=== PATIENT | female | born 1940 | race Caucasian/White ===

== ENCOUNTER 2017-11-15 10:05 | Emergency (ER) | payer MEDICARE ==
[2016-08-19 15:37] VITALS: Wt 139.0 kg
[~2017-11-15 10:05] MED LIST: ACE500 PO; ACET-1966 PO; ACET-2031 PO; ACTICIN; ALBUTEROL INHALER; ALP5 PO; ALPR-451 PO; AML5; AMLO-1 PO; AMLO-104 PO; AMO500 PO; ASCO-191 PO; ASPI-715 PO; ATOR40TA24 PO; BIOT10004 PO; CAND1TAB18 PO; CARB15DR74 OP; CEL100 PO; CEPH-13 PO; CHOL100052 PO; CHOL200038 PO; CIPR-326 PO; CLA500 PO; CRAN500T2 PO; CYCL1DRO6 OP; DOCU-416 PO; DULO60CA56 PO; FLAX100030 PO; FLUT16SP19 NS; FUR20 PO; GABA-1 PO; GENT5DRO OP; GUALA600 PO; GUIDMUD PO; HYDR-3087 PO; HYDR-385 PO; HYDR-4308 PO; HYDR473S4 PO; IBU600 PO; IRB150 PO; IRO150 PO; ISOS30TA51 PO; KETO5DRO50 OP; LEV125 PO; LEVO150T72 PO; LEVO250T37 PO; LID5T TOP; LISI-368 PO; LISI2.5T60 PO; LOR5 PO; LOS50 PO; LOSA50TA72 PO; METF-1 PO; MOM PO; NIT4 SL; NITR0.3T6 SL; NYST15PO4 TOP; OMEP-218 PO; OMEP40CA48 PO; OMEP40CA79 PO; OXAP-1 PO; OXYC-944 PO; OXYM3SPR NS; Oxygen INH; PAN40 PO; PANT40TA65 PO; PER PO; POLY17PO25 PO; POLY17PO33 PO; PREDNISONE; PROM5SYR PO; QUET50TA21 PO; SEN PO; SIMV-44 PO; SPIR1TAB26 PO; SPIR1TAB28 PO; SULF-198 PO; THIA50TA10 PO; TOBROD OP; TRA50 PO; VITA1CAP46 PO; WAR75 PO; WARF-1 PO; WARF2.5T11 PO; WARF2.5T62 PO; WARF4TAB47 PO; [UNRECOGNIZED DRUG - CODE] PO; [UNRECOGNIZED DRUG - OTHER]; [UNRECOGNIZED DRUG - REMARK]; [UNRECOGNIZED DRUG - REMARK]
--- NOTE | 2017-11-15 10:26 | ER Report ---
History and Physical Time Seen By MD: 10:25 HPI/ROS CHIEF COMPLAINT: trouble breathing HISTORY OF PRESENT ILLNESS: This is a 77 year old female. She has not been feeling well since about July. Slow worsening. Trouble mainly with breathing. Feels short of breath even with her oxygen. She has some upper congestion in the sinuses and throat. Has been having subjective fevers. Feels very weak. Friends telling her she looks very pale. Went to the doctor last week. They thought she had fluid on the lungs. Was given a prescription for an antibiotic, unsure which. Did not help. Feeling worse this week and decided to come to the ER. No problems with urination including no dysuria, hematuria. No problems with bowels including no diarrhea, constipation, blood in stool or melena. No abdominal pain. Chest feels heavy. No nausea or vomiting. Last night says she felt like she might . No swelling or edema in the legs. REVIEW OF SYSTEMS: Constitutional: No fever or chills. Eyes: No vision changes. ENT: As above. Cardiovascular: As above. Respiratory: As above. Gastrointestinal: As above. Genitourinary: As above. Musculoskeletal: No muscle or joint pains. Skin: No rashes. Neurological: Feels weak overall. Allergies: Coded Allergies: sulfamethoxazole (Verified Allergy, Intermediate, MENTAL STATUS CHANGES, ) trimethoprim (Verified Allergy, Intermediate, MENTAL STATUS CHANGES, ) promethazine HCl (Verified Allergy, Unknown, 11/15/17) Beta-Blockers (Beta-Adrenergic Bloc (Verified Adverse Reaction, Mild, COUGHING, 11/15/17) Home Meds Active Scripts Methylprednisolone (METHYLPREDNISOLONE) 4 Mg Tab.ds.pk, 4 MG PO DIRECTED, #1 PACK 0 Refills Prov:MARIKA MOSCOSO MD 11/15/17 Reported Medications Alprazolam (XANAX) 0.5 Mg Tablet, 2 TAB PO PRN, TAB 11/15/17 Aspirin (ASPIRIN) 325 Mg Tablet, 325 MG PO QDAY, TAB 11/15/17 Cephalexin Monohydrate (CEPHALEXIN) 500 Mg Cap, 250 MG PO QDAY, CAP 11/15/17 Quetiapine Fumarate (SEROQUEL) 50 Mg Tablet, 50 MG PO HS 09/27/16 Spironolact/Hydrochlorothiazid (SPIRONOLACTONE-HCTZ 25-25 TAB) 1 Each Tablet, 1 EACH PO DAILY, TAB 09/27/16 Metformin Hcl (GLUCOPHAGE) 500 Mg Tablet, 1 TAB PO QDAY, TAB 09/27/16 Duloxetine Hcl (CYMBALTA) 60 Mg Capsule.dr, 60 MG PO QDAY, #5 CAP 08/18/16 Cyclosporine (RESTASIS) 1 Each Droperette, 1 EACH OP BID 08/18/16 Losartan Potassium (LOSARTAN POTASSIUM) 50 Mg Tablet, 50 MG PO QDAY 08/18/16 Atorvastatin Calcium (LIPITOR) 40 Mg Tablet, 1 TAB PO QHS, TAB 08/18/16 Hydrocodone Bit/Acetaminophen (NORCO 7.5-325 TABLET) 1 Each Tablet, 1 EACH PO Q4H Y for PAIN 08/18/16 Amlodipine Besylate (NORVASC) 10 Mg Tablet, 1 TAB PO QDAY, TAB 08/18/16 Warfarin Sodium (WARFARIN SODIUM) 2.5 Mg Tablet, 2.5 MG PO Tu/Thurs 08/18/16 [Oxygen] No Conflict Check, 3-4 L INH CONTINUOUS 07/12/13 Levothyroxine Sodium (SYNTHROID) 150 Mcg Tablet, 150 MCG PO QDAY, 0 Refills 06/26/13 Docusate Sodium (COLACE) 100 Mg Capsule, 100 MG PO BID, 0 Refills 06/26/13 Warfarin Sodium (COUMADIN) 5 Mg Tablet, 5 MG PO Sun/Wed/Fri/Sat/Sun , #30 0 Refills 06/26/13 Discontinued Reported Medications Nystatin 100,000 Unit/Gm Top Powder (NYSTATIN 100,000 UNIT/GM TOP POWDER) 15 Gm Powder, 1 KIZZY TOP PRN, TUBE 08/18/16 Polyethylene Glycol 3350 (MIRALAX) 17 Gm Powd.pack, 17 GM PO QDAY, 0 Refills 06/26/13 Aspirin (Aspirin) 81 Mg Tablet.dr, 81 MG PO DAILY, 0 Refills 11/18/12 Isosorbide Mononitrate (Imdur) 30 Mg Tab.sr.24h, 30 MG PO QDAY, 0 Refills 11/18/12 Discontinued Scripts Pantoprazole Sodium (PANTOPRAZOLE SODIUM) 40 Mg Tablet.dr, 1 TAB PO QAM, #60 TAB 6 Refills Take 1 tablet every morning, 1/2 hour before eating. Prov:MARELY TERAN MD 10/04/16 Past Medical/Surgical History Hypertension, COPD, history of pulmonary embolism, type 2 diabetes, hypothyroidism, arthritis, pacemaker, multiple orthopedic surgeries, tonsillectomy Reviewed Nurses Notes: Yes Hx Smoking: Yes (SOCIAL SMOKER ONLY) Smoking Status: Former Smoker Exposure to Second Hand Smoke?: No Hx Substance Use Disorder: No Hx Alcohol Use: Yes Constitutional Vital Sign - Last 24 Hours 11/15/17 11/15/17 11/15/17 11/15/17 10:20 10:24 10:30 10:35 Temp 97.8 Pulse 100 100 Resp 18 B/P (MAP) 141/59 (86) 141/59 102/88 (93) Pulse Ox 95 97 O2 Delivery Nasal Cannula 11/15/17 11/15/17 11/15/17 11/15/17 10:50 11:02 11:20 11:30 Pulse 98 160 B/P (MAP) 120/95 (103) Pulse Ox 94 81 O2 Flow Rate 3.0 11/15/17 11/15/17 11/15/17 11/15/17 11:35 11:40 11:55 12:25 Pulse 96 97 95 93 Pulse Ox 94 98 97 99 11/15/17 11/15/17 12:40 12:55 Pulse 94 95 Pulse Ox 96 98 Physical Exam General Appearance: The patient is alert. No acute distress. Eyes: Pupils are equal, round, reactive to light. No injection or icterus, but she does have pallor. Extraocular movements are intact. ENT: Mucous membranes are moist. Normal oral mucosa. Posterior oropharynx is normal, with erythema but she does have postnasal drainage. Some erythema in the nasal mucosa with mucus present. Normal tympanic membranes and canals. Neck: Supple and non tender. No lymphadenopathy. Respiratory: Lungs are diminished but otherwise clear. There are no retractions or accessory muscle use. She is wearing oxygen on her concentrator, pulse dose Cardiovascular: Regular rate and rhythm. No murmurs, gallops or rubs. Normal capillary refill. Trace edema. Gastrointestinal: Abdomen is soft and non tender. Nondistended. Normal active bowel sounds. No costovertebral angle tenderness with percussion. Neurological: Alert and oriented x3. No focal neurologic deficits Skin: Warm and dry. Pallor. Musculoskeletal: Extremities are nontender. Full range of motion. No tenderness in palpation of the back and spine. DIFFERENTIAL DIAGNOSIS: After history and physical exam, differential diagnosis was considered for shortness of breath including but not limited to pulmonary infectious process, COPD, pulmonary embolus and congestive heart failure. Pallor could suggest a problem with anemia. Upper a story symptoms and congestion concerning for possible sinusitis Medical Decision Making Data Points Result Diagram: 11/15/17 1045 11/15/17 1045 Laboratory Hematology Test 11/15/17 00:00 11/15/17 10:45 11/15/17 10:55 Urine Color Yellow Urine Clarity Clear Urine pH 5.0 pH (4.8-9.5) Urine Specific [place] 1.018 Urine Protein Negative mg/dL (NEGATIVE) Urine Glucose (UA) Negative mg/dL (NEGATIVE) Urine Ketones Negative mg/dL (NEGATIVE) Urine Blood Negative (NEGATIVE) Urine Nitrite Negative (NEGATIVE) Urine Bilirubin Negative (NEGATIVE) Urine Urobilinogen Negative mg/dL (0.2-1.9) Urine Leukocyte Esterase Negative (NEGATIVE) Urine RBC <1 /HPF (0-2/HPF) Urine WBC 1 /HPF (0-5/HPF) Urine Squamous Epithelial Cells Many /LPF (</=FEW) Urine Bacteria Negative /HPF (NONE-FEW) Urine Mucus None /HPF (NONE-FEW) Red Blood Count 3.16 M/uL (4.17-5.56) Mean Corpuscular Volume 96.5 fL (80.0-96.0) Mean Corpuscular Hemoglobin 32.2 pg (26.0-33.0) Mean Corpuscular Hemoglobin Concent 33.4 g/dL (32.0-36.0) Red Cell Distribution Width 13.8 % (11.5-14.5) Mean Platelet Volume 8.8 fL (7.2-11.1) Neutrophils (%) (Auto) 87.2 % (39.4-72.5) Lymphocytes (%) (Auto) 8.3 % (17.6-49.6) Monocytes (%) (Auto) 3.5 % (4.1-12.4) Eosinophils (%) (Auto) 0.2 % (0.4-6.7) Basophils (%) (Auto) 0.8 % (0.3-1.4) Nucleated RBC Relative Count (auto) 0.0 /100WBC Neutrophils # (Auto) 13.2 K/uL (2.0-7.4) Lymphocytes # (Auto) 1.3 K/uL (1.3-3.6) Monocytes # (Auto) 0.5 K/uL (0.3-1.0) Eosinophils # (Auto) 0.0 K/uL (0.0-0.5) Basophils # (Auto) 0.1 K/uL (0.0-0.1) Nucleated RBC Absolute Count (auto) 0.00 K/uL D-Dimer Quantitative (PE/DVT) 2.49 ug/ml (0-0.50) Sodium Level 134 mmol/L (137-145) Potassium Level 4.2 mmol/L (3.5-5.0) Chloride Level 97 mmol/L (98-107) Carbon Dioxide Level 26 mmol/L (22-31) Blood Urea Nitrogen 75 mg/dl (7-18) Creatinine 1.00 mg/dl (0.52-1.04) Glomerular Filtration Rate Calc 53.6 Random Glucose 137 mg/dl (75-110) Lactate 2.0 mmol/L (0.7-2.1) Calcium Level 9.8 mg/dl (8.4-10.2) Total Bilirubin 0.5 mg/dl (0.2-1.3) Aspartate Amino Transf (AST/SGOT) 18 U/L (0-35) Alanine Aminotransferase (ALT/SGPT) 29 U/L (0-56) Alkaline Phosphatase 73 U/L (0-126) Troponin I < 0.012 ng/ml B-Type Natriuretic Peptide 6 pg/ml (0-100) Total Protein 6.3 gm/dl (6.3-8.2) Albumin 3.6 g/dl (3.5-5.0) Influenza Virus Type A (PCR) Negative (NEGATIVE) Influenza Virus Type B (PCR) Negative (NEGATIVE) Chemistry Test 11/15/17 00:00 11/15/17 10:45 11/15/17 10:55 Urine Color Yellow Urine Clarity Clear Urine pH 5.0 pH (4.8-9.5) Urine Specific [place] 1.018 Urine Protein Negative mg/dL (NEGATIVE) Urine Glucose (UA) Negative mg/dL (NEGATIVE) Urine Ketones Negative mg/dL (NEGATIVE) Urine Blood Negative (NEGATIVE) Urine Nitrite Negative (NEGATIVE) Urine Bilirubin Negative (NEGATIVE) Urine Urobilinogen Negative mg/dL (0.2-1.9) Urine Leukocyte Esterase Negative (NEGATIVE) Urine RBC <1 /HPF (0-2/HPF) Urine WBC 1 /HPF (0-5/HPF) Urine Squamous Epithelial Cells Many /LPF (</=FEW) Urine Bacteria Negative /HPF (NONE-FEW) Urine Mucus None /HPF (NONE-FEW) White Blood Count 15.1 k/uL (4.5-11.0) Red Blood Count 3.16 M/uL (4.17-5.56) Hemoglobin 10.2 g/dL (12.0-16.0) Hematocrit 30.5 % (34.0-47.0) Mean Corpuscular Volume 96.5 fL (80.0-96.0) Mean Corpuscular Hemoglobin 32.2 pg (26.0-33.0) Mean Corpuscular Hemoglobin Concent 33.4 g/dL (32.0-36.0) Red Cell Distribution Width 13.8 % (11.5-14.5) Platelet Count 266 K/uL (150-450) Mean Platelet Volume 8.8 fL (7.2-11.1) Neutrophils (%) (Auto) 87.2 % (39.4-72.5) Lymphocytes (%) (Auto) 8.3 % (17.6-49.6) Monocytes (%) (Auto) 3.5 % (4.1-12.4) Eosinophils (%) (Auto) 0.2 % (0.4-6.7) Basophils (%) (Auto) 0.8 % (0.3-1.4) Nucleated RBC Relative Count (auto) 0.0 /100WBC Neutrophils # (Auto) 13.2 K/uL (2.0-7.4) Lymphocytes # (Auto) 1.3 K/uL (1.3-3.6) Monocytes # (Auto) 0.5 K/uL (0.3-1.0) Eosinophils # (Auto) 0.0 K/uL (0.0-0.5) Basophils # (Auto) 0.1 K/uL (0.0-0.1) Nucleated RBC Absolute Count (auto) 0.00 K/uL D-Dimer Quantitative (PE/DVT) 2.49 ug/ml (0-0.50) Glomerular Filtration Rate Calc 53.6 Lactate 2.0 mmol/L (0.7-2.1) Calcium Level 9.8 mg/dl (8.4-10.2) Total Bilirubin 0.5 mg/dl (0.2-1.3) Aspartate Amino Transf (AST/SGOT) 18 U/L (0-35) Alanine Aminotransferase (ALT/SGPT) 29 U/L (0-56) Alkaline Phosphatase 73 U/L (0-126) Troponin I < 0.012 ng/ml B-Type Natriuretic Peptide 6 pg/ml (0-100) Total Protein 6.3 gm/dl (6.3-8.2) Albumin 3.6 g/dl (3.5-5.0) Influenza Virus Type A (PCR) Negative (NEGATIVE) Influenza Virus Type B (PCR) Negative (NEGATIVE) Coagulation Test 11/15/17 10:45 D-Dimer Quantitative (PE/DVT) 2.49 ug/ml Urinalysis Test 11/15/17 00:00 Urine Color Yellow Urine Clarity Clear Urine pH 5.0 pH (4.8-9.5) Urine Specific [place] 1.018 Urine Protein Negative mg/dL (NEGATIVE) Urine Glucose (UA) Negative mg/dL (NEGATIVE) Urine Ketones Negative mg/dL (NEGATIVE) Urine Blood Negative (NEGATIVE) Urine Nitrite Negative (NEGATIVE) Urine Bilirubin Negative (NEGATIVE) Urine Urobilinogen Negative mg/dL (0.2-1.9) Urine Leukocyte Esterase Negative (NEGATIVE) Urine RBC <1 /HPF (0-2/HPF) Urine WBC 1 /HPF (0-5/HPF) Urine Squamous Epithelial Cells Many /LPF (</=FEW) Urine Bacteria Negative /HPF (NONE-FEW) Urine Mucus None /HPF (NONE-FEW) EKG/Imaging EKG Interpretation 12 lead EKG: Rhythm: Sinus rhythm, first-degree AV block, rate 99 [place]: Left axis deviation QRS: normal ST segments: Nonspecific flattening, no elevation or depression noted Imaging Exam type: CHEST PA AND LAT History: cough, short of breath Comparison: June 06, 2017. Findings: Mild chronic interstitial changes are again seen throughout the lungs. There is no evidence of focal infiltrates pleural effusions or overt pulmonary edema. The cardiac silhouette is normal in size. The central pulmonary arteries appear prominent although similar to the prior study. There is a dual lead cardiac pacemaker with leads in the topography of the right atrium and right ventricle. There is moderate ectasia the thoracic aorta. There are spondylotic changes of the thoracic spine IMPRESSION: 1. Mildly prominent chronic initial changes but the lungs although no evidence of acute pulmonary consolidation Prominent central pulmonary arteries appear similar to the prior study can be seen with pulmonary arterial hypertension. Report Dictated By: Ayesha Navarro MD at 11/15/2017 11:24 AM EXAMINATION: CT CHEST PULMONARY ANGIOGRAM COMPARISON: Chest x-ray same day. Chest CT 08/18/2016 and earlier. HISTORY: short of breath, elevated d-dimer PROCEDURE: Pulmonary arterial phase imaging of the chest with 100 mL intravenous Isovue 370. Reconstruction of the source data set includes multiplanar 2D in the sagittal and coronal planes, and 3D reconstructed coronal slab MIP series. One of the following dose optimization techniques was utilized in the performance of this exam: Automated exposure control; adjustment of the mA and/ or kV according to the patient's size; or use of an iterative reconstruction technique. Specific details can be referenced in the facility's radiology CT exam operational policy. FINDINGS: Pulmonary vasculature: There is good contrast opacification of the pulmonary arterial system. 4.5 cm dilated main pulmonary artery, previously 5.1 cm. No pulmonary artery filling defect. Cardiac and mediastinum: Cardiac chambers are borderline enlarged slightly decreased in size in the interval. No pericardial effusion. At least moderate coronary calcifications. Pacemaker. No thoracic aortic aneurysm. No thoracic lymph node enlargement. Lungs and pleura: Right upper lobe 4 mm nodule is unchanged since at least 2012 and is considered a benign finding. No new or enlarging consolidation or nodule. No pneumothorax, edema, or effusion. Airways: The central airways are patent. Upper abdomen: No evidence of acute disease within the visualized upper abdomen. Osseous structures: Moderate degenerative change throughout the visualized thoracic spine. No acute osseous findings. IMPRESSION: 1. No pulmonary embolism or evidence of acute cardiopulmonary disease. 2. Chronic main pulmonary artery dilation consistent with pulmonary artery hypertension. 3. Additional chronic findings as detailed above. Report Dictated By: Helio Neff MD at 11/15/2017 12:37 PM Examination: SINUSES W/O CONTRAST Comparison: None. History: short of breath, congestion Procedure: Multiplanar noncontrast CT paranasal sinuses. One of the following dose optimization techniques was utilized in the performance of this exam: Automated exposure control; adjustment of the mA and/ or kV according to the patient's size; or use of an iterative reconstruction technique. Specific details can be referenced in the facility's radiology CT exam operational policy. Findings: The frontal sinuses and ethmoid air cells are well aerated with patent frontal recesses. Sphenoid sinuses are clear. Small mucous retention cyst versus a small amount of dependent fluid within the right maxillary sinus. The left maxillary sinus is clear. Both ostiomeatal units are patent. Mastoid air cells and middle ear cavities are well aerated. Nasal passage is clear and well aerated. Nasal septum is near midline. No mass effect in the visualized brain. Intracranial carotid atherosclerosis. Hyperostosis frontalis. Orbital contents are within normal limits and symmetric. Craniocervical junction alignment is within normal limits with mild degenerative change at the atlantodens interval. Temporomandibular joint alignment is preserved. IMPRESSION: 1. Right maxillary sinus small mucous retention cyst versus a small amount of dependent fluid. 2. Paranasal sinuses are otherwise clear with no other evidence of inflammation. Report Dictated By: Helio Neff MD at 11/15/2017 12:44 PM ED Course/Re-evaluation Clinical Indication for ER IV: Hydration, IV Access ED Course Labs and imaging are unremarkable with the chest x-ray that does not show any acute cardiopulmonary process. Because of continued difficulty breathing, a CT angiogram was ordered which also was negative. She is a little bit dehydrated with a BUN of 75 and elevated BUN to creatinine ratio. She received a liter of normal saline. Started her on Solu-Medrol and then a Medrol Dosepak. The antibiotic she received earlier in the week perhaps of been helping with the pulmonary process that was noted by her primary care doctor. No acute problem was noted today. We'll continue her on steroids and have her follow-up with Dr. Martell. Decision to Disposition Date: Nov 15, 2017 Decision to Disposition Time: 13:40 Depart Departure Latest Vital Signs Vital Signs Date Time Temp Pulse Resp B/P (MAP) Pulse Ox O2 Delivery O2 Flow Rate FiO2 11/15/17 12:55 95 98 11/15/17 11:30 120/95 (103) 11/15/17 11:02 3.0 11/15/17 10:24 97.8 18 Nasal Cannula Impression: Primary Impression: Dyspnea Additional Impression: Anemia Condition: Improved Disposition: HOME OR SELF-CARE Referrals: MARELY MARTELL MD (PCP) New Scripts Methylprednisolone (METHYLPREDNISOLONE) 4 Mg Tab.ds.pk 4 MG PO DIRECTED, #1 PACK 0 Refills Prov: MARIKA MOSCOSO MD 11/15/17 Patient Instructions: Anemia (ED), Dyspnea (ED) Additional Instructions: You have a slight decrease in red blood cells called anemia. This is not severe but needs to be followed up on by Dr. Martell's office. Please see them for follow-up in the next week. We did not find any other problems that would lead to you feeling short of breath. We suspect a viral respiratory infection. No signs of pneumonia or blood clots in the lungs. We would like to have you take a steroid pack called a Medrol Dospack over the next 6 days, start this tomorrow. We have given you the doses you need for today. Problem Qualifiers Primary Impression: Dyspnea Dyspnea type: unspecified Qualified Codes: R06.00 - Dyspnea, unspecified Additional Impression: Anemia Anemia type: unspecified type Qualified Codes: D64.9 - Anemia, unspecified MARIKA MOSCOSO MD Nov 15, 2017 10:26
--- NOTE | 2017-11-15 10:51 | EKG ---
FACILITY: [facility] PATIENT NAME: JEFFERSON MORALES : [id number] MR: [id number] V: [id number] EXAM DATE: ORDERING PHYSICIAN: MARIKA MOSCOSO TECHNOLOGIST: MINERVA Uribe Reason : RESPIRATORY Blood Pressure : / mmHG Vent. Rate : 098 BPM Atrial Rate : 098 BPM P-R Int : 286 ms QRS Dur : 084 ms QT Int : 352 ms P-R-T Axes : 000 -37 -60 degrees QTc Int : 449 ms Probable sinus rhythm but artifact precludes accurate reading Left axis deviation Abnormal ECG When compared with ECG of 18-AUG-2016 13:13, Sinus rhythm has replaced Wide QRS rhythm Confirmed by THELMA RODRIGUEZ ([id number]) on 11/16/2017 6:54:20 AM Referred By: BLANKA Confirmed By:THELMA RODRIGUEZ
[2017-11-15 10:58] LABS: PLATELET COUNT, AUTOMATED 266 K/uL (150-450)
--- NOTE | 2017-11-15 11:29 | RADIOLOGY IMAGING REPORT ---
FACILITY: [facility] - [place] PATIENT NAME: Susi Linder : 1940 MR: [id number] V: [id number] EXAM DATE: ORDERING PHYSICIAN: MARIKA MOSCOSO TECHNOLOGIST: Location: [facility] [place] Patient: Susi Linder : 1940 Visit/Account:[id number] Date of Sevice: 11/15/2017 Exam type: CHEST PA AND LAT History: cough, short of breath Comparison: June 06, 2017. Findings: Mild chronic interstitial changes are again seen throughout the lungs. There is no evidence of focal infiltrates pleural effusions or overt pulmonary edema. The cardiac silhouette is normal in size. The central pulmonary arteries appear prominent although similar to the prior study. There is a dual lead cardiac pacemaker with leads in the topography of the right atrium and right ventricle. There is moderate ectasia the thoracic aorta. There are spondylotic changes of the thoracic spine IMPRESSION: 1. Mildly prominent chronic initial changes but the lungs although no evidence of acute pulmonary co nsolidation Prominent central pulmonary arteries appear similar to the prior study can be seen with pulmonary art erial hypertension. Report Dictated By: Ayesha Navarro MD at 11/15/2017 11:24 AM Report E-Signed By: Ayesha Navarro MD at 11/15/2017 11:26 AM WSN:[email or web address]
[2017-11-15 11:30] VITALS: BP 120/95
[2017-11-15] MEDS ORDERED: CEPH500C24 PO (11:37)
[2017-11-15] MEDS ORDERED: ASPI-757 PO (11:38)
[2017-11-15] MEDS ORDERED: ALPR-429 PO (11:40)
[2017-11-15] MEDS ORDERED: NS 0.9% 150 ML BAG 150 ML ONE (11:58)
[2017-11-15] MEDS ORDERED: IOPAMIDOL 76% 100 ML INFUS BTL 100 ML ONE (11:58)
--- NOTE | 2017-11-15 12:48 | RADIOLOGY IMAGING REPORT ---
FACILITY: [facility] PATIENT NAME: Susi Linder : 1940 MR: [id number] V: [id number] EXAM DATE: ORDERING PHYSICIAN: MARIKA MOSCOSO TECHNOLOGIST: [place] [facility] [place] Susi L[place] : 1940 Visit/Account:[id number] Date of Sevice: 11/15/2017 EXAMINATION: CT CHEST PULMONARY ANGIOGRAM COMPARISON: Chest x-ray same day. Chest CT 08/18/2016 and earlier. HISTORY: short of breath, elevated d-dimer PROCEDURE: Pulmonary arterial phase imaging of the chest with 100 mL intravenous Isovue 370. Reconstr uction of the source data set includes multiplanar 2D in the sagittal and coronal planes, and 3D katelyn nstructed coronal slab MIP series. One of the following dose optimization techniques was utilized in the performance of this exam: Autom ated exposure control; adjustment of the mA and/or kV according to the patient's size; or use of an i terative reconstruction technique. Specific details can be referenced in the facility's radiology C T exam operational policy. FINDINGS: Pulmonary vasculature: There is good contrast opacification of the pulmonary arterial system. 4.5 cm dilated main pulmonary artery, previously 5.1 cm. No pulmonary artery filling defect. Cardiac and mediastinum: Cardiac chambers are borderline enlarged slightly decreased in size in the i nterval. No pericardial effusion. At least moderate coronary calcifications. Pacemaker. No thoracic a ortic aneurysm. No thoracic lymph node enlargement. Lungs and pleura: Right upper lobe 4 mm nodule is unchanged since at least 2012 and is considered a b enign finding. No new or enlarging consolidation or nodule. No pneumothorax, edema, or effusion. Airways: The central airways are patent. Upper abdomen: No evidence of acute disease within the visualized upper abdomen. Osseous structures: Moderate degenerative change throughout the visualized thoracic spine. No acute o sseous findings. IMPRESSION: 1. No pulmonary embolism or evidence of acute cardiopulmonary disease. 2. Chronic main pulmonary artery dilation consistent with pulmonary artery hypertension. 3. Additional chronic findings as detailed above. Report Dictated By: Helio Neff MD at 11/15/2017 12:37 PM Report E-Signed By: Helio Neff MD at 11/15/2017 12:44 PM WSN:[id number]
--- NOTE | 2017-11-15 12:54 | RADIOLOGY IMAGING REPORT ---
FACILITY: [facility] [place] PATIENT NAME: Susi Linder : 1940 MR: [id number] V: [id number] EXAM DATE: ORDERING PHYSICIAN: MARIKA MOSCOSO TECHNOLOGIST: Location: [facility] - [place] Patient: Susi Linder : 1940 Visit/Account:[id number] Date of Sevice: 11/15/2017 Examination: SINUSES W/O CONTRAST Comparison: None. History: short of breath, congestion Procedure: Multiplanar noncontrast CT paranasal sinuses. One of the following dose optimization techniques was utilized in the performance of this exam: Autom ated exposure control; adjustment of the mA and/or kV according to the patient's size; or use of an i terative reconstruction technique. Specific details can be referenced in the facility's radiology C T exam operational policy. Findings: The frontal sinuses and ethmoid air cells are well aerated with patent frontal recesses. Sp henoid sinuses are clear. Small mucous retention cyst versus a small amount of dependent fluid within the right maxillary sinus. The left maxillary sinus is clear. Both ostiomeatal units are patent. [place] air cells and middle ear cavities are well aerated. Nasal passage is clear and well aerated. Masoud al septum is near midline. No mass effect in the visualized brain. Intracranial carotid atherosclerosis. Hyperostosis frontalis. Orbital contents are within normal limits and symmetric. Craniocervical junction alignment is within normal limits with mild degenerative change at the atlantodens interval. Temporomandibular joint ali gnment is preserved. IMPRESSION: 1. Right maxillary sinus small mucous retention cyst versus a small amount of dependent fluid. 2. Paranasal sinuses are otherwise clear with no other evidence of inflammation. Report Dictated By: Helio Neff MD at 11/15/2017 12:44 PM Report E-Signed By: Helio Neff MD at 11/15/2017 12:50 PM WSN:[id number]
[2017-11-15] MEDS ORDERED: METH4TAB66 PO (13:43)
[2017-11-15] MEDS ORDERED: methylPREDNIS SUCC 125 MG/2ML IVP ONE (13:45)
[2017-11-15] MEDS ORDERED: methylPREDNIS 4 MG TAB PO ONE (21:00)
== END 2017-11-15 14:48 | disposition home or self-care (01) ==
LOC: ER 10:24
DX: D64.9 Anemia, unspecified (principal); R06.00 Dyspnea, unspecified; E86.0 Dehydration; R09.81 Nasal congestion; J34.1 Cyst and mucocele of nose and nasal sinus
CPT/HCPCS: 70486; 71046; 71275; 81001; 83605; 83880; 84484; 85025; 85379; 87502; 93005; 96374; 99284; J2930; J7509; Q9967; 82040; 82247; 82310; 82374; 82435; 82565; 82947; 84075; 84132; 84155; 84295; 84450; 84460; 84520

== ENCOUNTER 2017-11-30 18:52 | Observation (INO) | payer MEDICARE ==
[~2017-11-30] VITALS: Ht 170.2 cm; Wt 147.6 kg
[~2017-11-30 18:52] MED LIST changes: +ALPR-429 PO; +ASPI-757 PO; +CEPH500C24 PO; +METH4TAB66 PO
--- NOTE | 2017-11-30 19:07 | ER Report ---
History and Physical Time Seen By MD: 19:07 HPI/ROS CHIEF COMPLAINT: anemia, weakness, fatigue HISTORY OF PRESENT ILLNESS: This is a 77 year old female. She is having ongoing problems with being very fatigued. She has recently had some dark stools. Had a drop from hemoglobin of 10.5 down to 8.5 yesterday. Concern about GI bleeding and recommended to come to the ER for further evaluation. Has an appointment with Dr. Montero for next week. I saw here on 11/15/17 and negative workup other than mild anemia. At that time had been on antibiotics. I put her on a Medrol dosepak at that time which she has completer. Also no Coumadin for PE in the past. The Coumadin was held yesterday. She also takes aspirin. She has no fevers or chills. No chest pain. She has been on her usual 2-3 liters of oxygen , which is fine at rest, but severe worsening of her shortness of breath and fatigue with any exertion, even just getting up to walk across the room to sit down. No bruising. I did call Dr. Montero and spoke with him to get the recent history. REVIEW OF SYSTEMS: Constitutional: No fever or chills. Eyes: No vision changes. ENT: No sore throat. No congestion. Cardiovascular: No chest pain. Respiratory: As above. Gastrointestinal: No abdominal pain. No nausea or vomiting. Genitourinary: No dysuria. No hematuria. Musculoskeletal: No back pain. Skin: No rashes. Neurological: No numbness. No headache. Allergies: Coded Allergies: sulfamethoxazole (Verified Allergy, Intermediate, MENTAL STATUS CHANGES, ) trimethoprim (Verified Allergy, Intermediate, MENTAL STATUS CHANGES, ) promethazine HCl (Verified Allergy, Unknown, 11/30/17) Beta-Blockers (Beta-Adrenergic Bloc (Verified Adverse Reaction, Mild, COUGHING, 11/30/17) Home Meds Reported Medications Ferrous Sulfate (FERROUS SULFATE) 325 Mg Tablet., 325 MG PO BID 11/30/17 Ascorbic Acid (VITAMIN C) 500 Mg Tablet, 500 MG PO, TAB 11/30/17 Alprazolam (XANAX) 0.5 Mg Tablet, 2 TAB PO PRN, TAB 11/15/17 Aspirin (ASPIRIN) 325 Mg Tablet, 325 MG PO QDAY, TAB 11/15/17 Cephalexin Monohydrate (CEPHALEXIN) 500 Mg Cap, 250 MG PO QDAY, CAP 11/15/17 Quetiapine Fumarate (SEROQUEL) 50 Mg Tablet, 50 MG PO HS 09/27/16 Spironolact/Hydrochlorothiazid (SPIRONOLACTONE-HCTZ 25-25 TAB) 1 Each Tablet, 1 EACH PO DAILY, TAB 09/27/16 Metformin Hcl (GLUCOPHAGE) 500 Mg Tablet, 1 TAB PO QDAY, TAB 09/27/16 Duloxetine Hcl (CYMBALTA) 60 Mg Capsule.dr, 60 MG PO QDAY, #5 CAP 08/18/16 Cyclosporine (RESTASIS) 1 Each Droperette, 1 EACH OP BID 08/18/16 Losartan Potassium (LOSARTAN POTASSIUM) 50 Mg Tablet, 50 MG PO QDAY 08/18/16 Atorvastatin Calcium (LIPITOR) 40 Mg Tablet, 1 TAB PO QHS, TAB 08/18/16 Hydrocodone Bit/Acetaminophen (NORCO 7.5-325 TABLET) 1 Each Tablet, 1 EACH PO Q4H Y for PAIN 08/18/16 Amlodipine Besylate (NORVASC) 10 Mg Tablet, 1 TAB PO QDAY, TAB 08/18/16 Warfarin Sodium (WARFARIN SODIUM) 2.5 Mg Tablet, 2.5 MG PO Tues/Thurs 08/18/16 [Oxygen] No Conflict Check, 3-4 L INH CONTINUOUS 07/12/13 Levothyroxine Sodium (SYNTHROID) 150 Mcg Tablet, 150 MCG PO QDAY, 0 Refills 06/26/13 Docusate Sodium (COLACE) 100 Mg Capsule, 100 MG PO BID, 0 Refills 06/26/13 Warfarin Sodium (COUMADIN) 5 Mg Tablet, 5 MG PO Sun/Wed/Sun/Sat/Sun , #30 0 Refills 06/26/13 Discontinued Scripts Methylprednisolone (METHYLPREDNISOLONE) 4 Mg Tab.ds.pk, 4 MG PO DIRECTED, #1 PACK 0 Refills Prov:MARIKA MOSCOSO MD 11/15/17 Past Medical/Surgical History Hypertension, COPD, history of pulmonary embolism, type 2 diabetes, hypothyroidism, arthritis, pacemaker, multiple orthopedic surgeries, tonsillectomy Reviewed Nurses Notes: Yes Hx Smoking: Yes (SOCIAL SMOKER ONLY) Smoking Status: Former Smoker Exposure to Second Hand Smoke?: No Hx Substance Use Disorder: No Hx Alcohol Use: Yes Constitutional Vital Sign - Last 24 Hours 11/30/17 11/30/17 11/30/17 11/30/17 19:19 19:23 19:30 19:52 Temp 97.9 Pulse 71 72 Resp 20 10 B/P (MAP) 128/59 128/59 (82) 138/68 (91) Pulse Ox 82 99 O2 Delivery Room Air 11/30/17 20:00 B/P (MAP) 163/69 (100) Physical Exam General Appearance: The patient is alert. No acute distress. Eyes: Pupils are equal, round. Reactive to light. No injection or icterus; mild pallor. Extraocular movements are intact. ENT: Mucous membranes are moist. Normal oral mucosa. Neck: Supple and non tender. Respiratory: Lungs are clear to auscultation. There are no retractions or accessory muscle use. Cardiovascular: Regular rate and rhythm. No murmurs, gallops or rubs. Normal capillary refill. Gastrointestinal: Abdomen is soft and non tender. Nondistended. Normal active bowel sounds. Neurological: Alert and oriented x3. No focal neurologic Skin: Warm and dry. DIFFERENTIAL DIAGNOSIS: After history and physical exam, differential diagnosis was considered for anemia with signs of GI bleeding. Medical Decision Making Data Points Result Diagram: 11/30/17192911/30/171929 Laboratory Hematology Test 11/30/17 19:15 11/30/17 19:30 Stool Occult Blood (IFOB) Negative (NEGATIVE) Red Blood Count 2.87 M/uL (4.17-5.56) Mean Corpuscular Volume 96.5 fL (80.0-96.0) Mean Corpuscular Hemoglobin 31.2 pg (26.0-33.0) Mean Corpuscular Hemoglobin Concent 32.3 g/dL (32.0-36.0) Red Cell Distribution Width 15.9 % (11.5-14.5) Mean Platelet Volume 6.9 fL (7.2-11.1) Neutrophils (%) (Auto) 74.4 % (39.4-72.5) Lymphocytes (%) (Auto) 15.3 % (17.6-49.6) Monocytes (%) (Auto) 7.2 % (4.1-12.4) Eosinophils (%) (Auto) 1.9 % (0.4-6.7) Basophils (%) (Auto) 1.2 % (0.3-1.4) Nucleated RBC Relative Count (auto) 0.1 /100WBC Neutrophils # (Auto) 7.4 K/uL (2.0-7.4) Lymphocytes # (Auto) 1.5 K/uL (1.3-3.6) Monocytes # (Auto) 0.7 K/uL (0.3-1.0) Eosinophils # (Auto) 0.2 K/uL (0.0-0.5) Basophils # (Auto) 0.1 K/uL (0.0-0.1) Nucleated RBC Absolute Count (auto) 0.01 K/uL Prothrombin Time 16.2 seconds (12.0-14.4) Prothromb Time International Ratio 1.29 Activated Partial Thromboplast Time 30 seconds (23-35) Sodium Level 137 mmol/L (137-145) Potassium Level 4.1 mmol/L (3.5-5.0) Chloride Level 99 mmol/L (98-107) Carbon Dioxide Level 29 mmol/L (22-31) Blood Urea Nitrogen 16 mg/dl (7-18) Creatinine 1.10 mg/dl (0.52-1.04) Glomerular Filtration Rate Calc 48.0 Random Glucose 100 mg/dl (75-110) Calcium Level 9.0 mg/dl (8.4-10.2) Total Bilirubin 0.3 mg/dl (0.2-1.3) Aspartate Amino Transf (AST/SGOT) 20 U/L (0-35) Alanine Aminotransferase (ALT/SGPT) 26 U/L (0-56) Alkaline Phosphatase 103 U/L (0-126) Total Protein 6.6 gm/dl (6.3-8.2) Albumin 3.7 g/dl (3.5-5.0) Chemistry Test 11/30/17 19:15 11/30/17 19:30 Stool Occult Blood (IFOB) Negative (NEGATIVE) White Blood Count 9.9 k/uL (4.5-11.0) Red Blood Count 2.87 M/uL (4.17-5.56) Hemoglobin 9.0 g/dL (12.0-16.0) Hematocrit 27.7 % (34.0-47.0) Mean Corpuscular Volume 96.5 fL (80.0-96.0) Mean Corpuscular Hemoglobin 31.2 pg (26.0-33.0) Mean Corpuscular Hemoglobin Concent 32.3 g/dL (32.0-36.0) Red Cell Distribution Width 15.9 % (11.5-14.5) Platelet Count 346 K/uL (150-450) Mean Platelet Volume 6.9 fL (7.2-11.1) Neutrophils (%) (Auto) 74.4 % (39.4-72.5) Lymphocytes (%) (Auto) 15.3 % (17.6-49.6) Monocytes (%) (Auto) 7.2 % (4.1-12.4) Eosinophils (%) (Auto) 1.9 % (0.4-6.7) Basophils (%) (Auto) 1.2 % (0.3-1.4) Nucleated RBC Relative Count (auto) 0.1 /100WBC Neutrophils # (Auto) 7.4 K/uL (2.0-7.4) Lymphocytes # (Auto) 1.5 K/uL (1.3-3.6) Monocytes # (Auto) 0.7 K/uL (0.3-1.0) Eosinophils # (Auto) 0.2 K/uL (0.0-0.5) Basophils # (Auto) 0.1 K/uL (0.0-0.1) Nucleated RBC Absolute Count (auto) 0.01 K/uL Prothrombin Time 16.2 seconds (12.0-14.4) Prothromb Time International Ratio 1.29 Activated Partial Thromboplast Time 30 seconds (23-35) Glomerular Filtration Rate Calc 48.0 Calcium Level 9.0 mg/dl (8.4-10.2) Total Bilirubin 0.3 mg/dl (0.2-1.3) Aspartate Amino Transf (AST/SGOT) 20 U/L (0-35) Alanine Aminotransferase (ALT/SGPT) 26 U/L (0-56) Alkaline Phosphatase 103 U/L (0-126) Total Protein 6.6 gm/dl (6.3-8.2) Albumin 3.7 g/dl (3.5-5.0) Coagulation Test 11/30/17 19:30 Prothrombin Time 16.2 seconds Prothromb Time International Ratio 1.29 Activated Partial Thromboplast Time 30 seconds ED Course/Re-evaluation Clinical Indication for ER IV: IV Access ED Course Labs show essentially unchanged H/H with hemoglobin of 9.0 today. Occult blood negative in stool. INR at 1.29 with Coumadin on hold. Discussed with Dr. Arechiga who accepted the patient for admission. Ordered type and cross for 2 units. Decision to Disposition Date: Nov 30, 2017 Decision to Disposition Time: 20:44 Depart Departure Latest Vital Signs Vital Signs Date Time Temp Pulse Resp B/P (MAP) Pulse Ox O2 Delivery O2 Flow Rate FiO2 11/30/17 20:00 163/69 (100) 11/30/17 19:52 72 10 99 11/30/17 19:19 97.9 Room Air Impression: Primary Impression: Anemia Additional Impression: Dyspnea Condition: Condition Unchanged Disposition: Admitted from ER Referrals: MARELY MARTELL MD (PCP) Problem Qualifiers Primary Impression: Anemia Anemia type: iron deficiency Iron deficiency anemia type: chronic blood loss Qualified Codes: D50.0 - Iron deficiency anemia secondary to blood loss ( chronic) Additional Impression: Dyspnea Dyspnea type: dyspnea on exertion Qualified Codes: R06.09 - Other forms of dyspnea MARIKA MOSCOSO MD Nov 30, 2017 19:07
[2017-11-30] MEDS ORDERED: FERR-41 PO (19:39)
[2017-11-30] MEDS ORDERED: ASCO-182 PO (19:39)
[2017-11-30 19:44] LABS: PLATELET COUNT, AUTOMATED 346 K/uL (150-450)
[2017-11-30 19:53] LABS: INR 1.29
[2017-11-30 21:25] VITALS: BP 148/69
[2017-11-30] MEDS ORDERED: NS(*) 0.9% 500 ML BAG 500 ML IV PRN (22:00)
[2017-11-30 22:28] VITALS: BP 114/54
[2017-11-30 22:46] VITALS: BP 119/52
[2017-11-30] MEDS ORDERED: INFLUENZA VIRUS VAC 0.5 ML SYR IM ONLY ONE (23:20)
[2017-12-01] VITALS (8 sets, daily range): BP systolic 108–142; BP diastolic 49–70; Ht 170.2 cm; Wt 147.6 kg
--- NOTE | 2017-12-01 00:58 | History & Physical ---
History of Present Illness Chief Complaint Weakness, melena, SOB with exertion. History of Present Illness The patient is a 77 year old female with PMH significant for history of PE on Coumadin who presents with black, tarry stools and weakness/fatigue for several days. The patient states she was recently seen in the ER for dyspnea on exertion. She was found to be anemic at that time and was told to follow up with her PCP. She saw Dr. Apple and he repeated a CBC and found that her hemoglobin had dropped further. He advised the patient to call general surgery to make an appointment for further evaluation. The patient called Dr. Montero's office to schedule an appointment. She told the office staff that she was having black, tarry stools and felt weak. She was advised to go to the ER for further evaluation. The patient takes a baby aspirin with her Coumadin. She recently had a course of oral steroids as well. She has a history of gastritis and duodenitis. She also has a history of esophageal stricture and last underwent EGD with dilation in September of 2016. History Problems: (1) Duodenitis Status: Chronic (2) GERD (gastroesophageal reflux disease) Status: Chronic (3) Gastritis Status: Chronic (4) Carotid artery stenosis Status: Acute (5) MARIA ELENA treated with BiPAP Status: Chronic (6) Hypothyroid Status: Chronic (7) Pacemaker Status: Chronic (8) Asthma Status: Chronic (9) Angina pectoris Status: Chronic (10) Benign hypertension Status: Chronic (11) Pulmonary embolism Status: Chronic (12) Type II diabetes mellitus Status: Chronic Home Meds Reported Medications Alprazolam (ALPRAZOLAM) 1 Mg Tablet, 1 TAB PO QHS, #3 TAB 12/01/17 Aspirin (ASPIRIN) 81 Mg Tab.chew, 81 MG PO QDAY, TAB.CHEW 12/01/17 Ferrous Sulfate (FERROUS SULFATE) 325 Mg Tablet.dr, 325 MG PO BID 11/30/17 Ascorbic Acid (VITAMIN C) 500 Mg Tablet, 500 MG PO, TAB 11/30/17 Quetiapine Fumarate (SEROQUEL) 50 Mg Tablet, 50 MG PO HS 09/27/16 Spironolact/Hydrochlorothiazid (SPIRONOLACTONE-HCTZ 25-25 TAB) 1 Each Tablet, 1 EACH PO DAILY, TAB 09/27/16 Metformin Hcl (GLUCOPHAGE) 500 Mg Tablet, 1 TAB PO QDAY, TAB 09/27/16 Losartan Potassium (LOSARTAN POTASSIUM) 50 Mg Tablet, 50 MG PO QDAY 08/18/16 Atorvastatin Calcium (LIPITOR) 40 Mg Tablet, 1 TAB PO QHS, TAB 08/18/16 Hydrocodone Bit/Acetaminophen (NORCO 7.5-325 TABLET) 1 Each Tablet, 1 EACH PO Q4H Y for PAIN 08/18/16 Amlodipine Besylate (NORVASC) 10 Mg Tablet, 1 TAB PO QDAY, TAB 08/18/16 Warfarin Sodium (WARFARIN SODIUM) 2.5 Mg Tablet, 2.5 MG PO Tu/08/18/16 [Oxygen] No Conflict Check, 3-4 L INH CONTINUOUS 07/12/13 Levothyroxine Sodium (SYNTHROID) 150 Mcg Tablet, 150 MCG PO QDAY, 0 Refills 06/26/13 Docusate Sodium (COLACE) 100 Mg Capsule, 100 MG PO BID, 0 Refills 06/26/13 Warfarin Sodium (COUMADIN) 5 Mg Tablet, 5 MG PO Sun/Sun/Sun/Sat/Sun , #30 0 Refills 06/26/13 Discontinued Reported Medications Alprazolam (XANAX) 0.5 Mg Tablet, 2 TAB PO PRN, TAB 11/15/17 Aspirin (ASPIRIN) 325 Mg Tablet, 325 MG PO QDAY, TAB 11/15/17 Cephalexin Monohydrate (CEPHALEXIN) 500 Mg Cap, 250 MG PO QDAY, CAP 11/15/17 Duloxetine Hcl (CYMBALTA) 60 Mg Capsule.dr, 60 MG PO QDAY, #5 CAP 08/18/16 Cyclosporine (RESTASIS) 1 Each Droperette, 1 EACH OP BID 08/18/16 Discontinued Scripts Methylprednisolone (METHYLPREDNISOLONE) 4 Mg Tab.ds.pk, 4 MG PO DIRECTED, #1 PACK 0 Refills Prov:MARIKA MOSCOSO MD 11/15/17 Allergies: Coded Allergies: sulfamethoxazole (Verified Allergy, Intermediate, MENTAL STATUS CHANGES, ) trimethoprim (Verified Allergy, Intermediate, MENTAL STATUS CHANGES, ) promethazine HCl (Verified Allergy, Unknown, 11/30/17) Beta-Blockers (Beta-Adrenergic Bloc (Verified Adverse Reaction, Mild, COUGHING, 11/30/17) Patient History: FHx: stroke FATHER Other Social/Family Hx The patient is . She is retired. Hx Smoking: Yes (SOCIAL SMOKER ONLY) Smoking Status: Former Smoker Exposure to Second Hand Smoke?: No Caffeine Intake: Coffee Caffeine/Cups Per Day: 2 Hx Alcohol Use: Yes (TWICE A YEAR. RARELY ) Hx Substance Use Disorder: No Social Drug Use: Never History of IV Drug Use: No Review of Systems All Systems Reviewed/Normal: Yes, Except as Noted Constitutional: Other (Fatigue) Neurological: Weakness Respiratory: Shortness of Breath (With exertion.) Exam Vital Signs Vital Signs Date Time Temp Pulse Resp B/P (MAP) Pulse Ox O2 Delivery O2 Flow Rate FiO2 11/30/17 22:46 98.1 70 16 119/52 11/30/17 22:00 98 CPAP 3.0 General Appearance: Alert, Awake, No Acute Distress Neuro: No Gross deficits Eyes: PERRLA Cardiovascular: Regular Rate and Rhythm Respiratory: Clear to Auscultation GI: Abd Soft and Non-Tender Extremities: Warm, Perfused, Edema (1-2+) Integumentary: Skin Intact without Lesion / Mass Psych: Appropriate Mood & Affect Medical Decision Making Data Points Result Diagram: 11/30/17192911/30/171929 Item Value Date Time Stool Occult Blood (IFOB) Negative 11/30/171914 Pre-Admit Course Medical Record Review: Yes Assessment and Plan Problems: (1) Anemia Status: Acute Assessment & Plan: The patient is symptomatic with weakness, fatigue and exertional dyspnea. The patient has had melena and did have heme+ stools at Dr. Apple's office yesterday. He had her hold her Coumadin and her INR is down to 1.26 today. Her stool was heme negative in ER today. Will admit and give 2 u PRBCs. She has an appt. to see Dr. Montero next Sunday for further evaluation. Will recheck CBC in am. (2) Pulmonary embolism Status: Chronic Assessment & Plan: Will continue to hold Coumadin overnight. (3) Benign hypertension Status: Chronic Assessment & Plan: Continue spironolactone/HCTZ. (4) Asthma Status: Chronic Assessment & Plan: Continue oxygen. (5) Hypothyroid Status: Chronic Assessment & Plan: Continue levothyroxine. (6) MARIA ELENA treated with BiPAP Status: Chronic Assessment & Plan: Continue BiPAP. (7) Pacemaker Status: Chronic Assessment & Plan: No issues. (8) Type II diabetes mellitus Status: Chronic Assessment & Plan: Continue metformin. Time Spent on Plan of Care: < 30 min Venous Thromboembolism VTE Risk Physician Assess for VTE Risk: Yes Patient's VTE Risk: Low VTE Diagnostic Test 2 Days Prior to Admit: No Antithrombotics Is Pt On Any Antithrombotics?: No (Holding Coumadin due to bleeding and anemia. ) Exam Sepsis Risk: No Definite Risk Problem Qualifiers (1) Anemia: Anemia type: iron deficiency Iron deficiency anemia type: chronic blood loss Qualified Codes: D50.0 - Iron deficiency anemia secondary to blood loss ( chronic) THELMA GOEL MD Dec 01, 2017 00:57
[2017-12-01] MEDS ORDERED: ASPI81TA94 PO (00:59)
[2017-12-01] MEDS ORDERED: ALPR-451 PO (01:00)
[2017-12-01] MEDS: APAP/HYDROCODONE 325/7.5 TAB PO PRN ×3 (04:22→20:59)
--- NOTE | 2017-12-01 08:19 | Hospitalist Progress Note ---
Subjective Progress Notes Subjective Some dizziness with standing or sitting. No nausea or emesis. No blood noted in stool. Received two units of PRBC's without incident. A bit reluctant to go home. Physical Exam Vital Signs Date Time Temp Pulse Resp B/P (MAP) Pulse Ox O2 Delivery O2 Flow Rate FiO2 12/01/17 07:08 98.7 16 139/49 (79) 92 Nasal Cannula 2.0 12/01/17 04:21 70 General Appearance: Alert, Awake, No Acute Distress, Afebrile Cardiovascular: Regular Rate and Rhythm Respiratory: Clear to Auscultation GI: Soft and Non-Tender Psych: Alert & Oriented X3, Appropriate Mood & Affect Result Diagram: 11/30/17192911/30/171929 Assessment and Plan Problems: (1) Anemia Status: Acute Assessment & Plan: The patient is symptomatic with weakness, fatigue and exertional dyspnea. The patient has had melena and did have heme+ stools at Dr. Apple's office. He had her hold her Coumadin and her INR is down to 1.26 . Her stool was heme negative in ER. Give 2 u PRBCs. She has an appt. to see Dr. Montero next Sunday for further evaluation. Hgb pending this morning. If improved will send home and if not will keep today and transfuse additional units. (2) Pulmonary embolism Status: Chronic Assessment & Plan: Will continue to hold Coumadin due to bleeding issues which are not yet identified. (3) Benign hypertension Status: Chronic Assessment & Plan: Continue spironolactone/HCTZ. (4) Asthma Status: Chronic Assessment & Plan: Continue oxygen. (5) Hypothyroid Status: Chronic Assessment & Plan: Continue levothyroxine. (6) MARIA ELENA treated with BiPAP Status: Chronic Assessment & Plan: Continue BiPAP. (7) Pacemaker Status: Chronic Assessment & Plan: Having some palpitations when she moves around. Will place on tele this morning and see if there are significant arrhythmias. (8) Type II diabetes mellitus Status: Chronic Assessment & Plan: Continue metformin. Time Spent on Plan of Care: > 30 min Exam Sepsis Risk: No Definite Risk Problem Qualifiers (1) Anemia: Anemia type: iron deficiency Iron deficiency anemia type: chronic blood loss Qualified Codes: D50.0 - Iron deficiency anemia secondary to blood loss ( chronic) KINZA COLON MD FACP Dec 01, 2017 08:19
[2017-12-01] MEDS: DOCUSATE SODIUM 100 MG CAP PO SCH ×2 (08:48→21:00)
[2017-12-01] MEDS: SPIRONOLACTONE 25 MG TAB PO SCH (08:48)
[2017-12-01] MEDS: LOSARTAN POTASSIUM 50 MG TAB PO SCH (08:49)
[2017-12-01] MEDS: HYDROCHLOROTHIAZIDE 25 MG TAB PO SCH (08:49)
[2017-12-01] MEDS: metFORMIN HCL 500 MG TAB PO SCH (08:49)
[2017-12-01] MEDS: amLODIPine BESYL(*) 5 MG TAB PO SCH (08:49)
[2017-12-01] MEDS: FERROUS SULFATE 325 MG TAB PO SCH ×2 (08:49→17:17)
[2017-12-01] MEDS: ASCORBIC ACID 500 MG TAB PO SCH (08:50)
[2017-12-01] MEDS: LEVOTHYROXINE SOD 0.150 MG TAB PO SCH (08:50)
[2017-12-01] MEDS ORDERED: QUEtiapine FUM 25 MG TAB PO SCH (21:00)
[2017-12-01] MEDS ORDERED: ATORVASTATIN 40 MG TAB PO SCH (21:00)
[2017-12-01] MEDS ORDERED: ALPRAZolam 1 MG TAB PO SCH (21:00)
[2017-12-02 03:06] VITALS: BP 123/58
[2017-12-02 08:34] VITALS: BP 126/76
--- NOTE | 2017-12-02 09:01 | Hospitalist Depart ---
Discharge Summary Reason for Hosp/Final Diag: (1) Anemia Status: Acute Hospital Course & Plan: The patient was symptomatic with weakness, fatigue and exertional dyspnea. The patient did have melena prior to admission and did have heme positive stools at Dr. Martell's office. He had her hold her Coumadin and her INR had come down. Her stool was heme negative in ER. She was given 2 units PRBCs, which she tolerated well. She has an appointment to see Dr. Teran Sunday12/07/17 for further evaluation. Hgb/Hct have remained stable following the transfusion. She will return to [facility] ER if any problems. (2) Pulmonary embolism Status: Chronic Hospital Course & Plan: Will continue to hold Coumadin due to possible bleeding issues which are not yet identified. When and if to restart will be left to Dr. Martell and Dr. Teran. (3) Benign hypertension Status: Chronic Hospital Course & Plan: Continue losartan and spironolactone/HCTZ. (4) Asthma Status: Chronic Hospital Course & Plan: Continue oxygen. (5) Hypothyroid Status: Chronic Hospital Course & Plan: Continue levothyroxine. (6) MARIA ELENA treated with BiPAP Status: Chronic Hospital Course & Plan: Continue BiPAP. (7) Type II diabetes mellitus Status: Chronic Hospital Course & Plan: Continue metformin. Departure Weight (Pounds): 325 Weight (Ounces): 7.0 Result Diagram: 12/02/17 0541 11/30/171929 Item Value Date Time White Blood Count 9.9 k/uL 11/30/171929 Hemoglobin 9.0 g/dL *L 11/30/171929 Hematocrit 27.7 % L 11/30/171929 Platelet Count 346 K/uL 11/30/171929 Hemoglobin 10.1 g/dL L 12/01/1712 Hematocrit 30.6 % L 12/01/17811 Sodium Level 137 mmol/L 11/30/171929 Potassium Level 4.1 mmol/L 11/30/171929 Chloride Level 99 mmol/L 11/30/171929 Carbon Dioxide Level 29 mmol/L 11/30/171929 Blood Urea Nitrogen 16 mg/dl 11/30/171929 Creatinine 1.10 mg/dl H 3/23/18 1930 Glomerular Filtration Rate Calc 48.0 11/30/171929 Random Glucose 100 mg/dl 11/30/171929 Calcium Level 9.0 mg/dl 11/30/171929 Total Bilirubin 0.3 mg/dl 11/30/171929 Aspartate Amino Transf (AST/SGOT) 20 U/L 11/30/171929 Alanine Aminotransferase (ALT/SGPT) 26 U/L 11/30/171929 Alkaline Phosphatase 103 U/L 11/30/171929 Total Protein 6.6 gm/dl 11/30/171929 Albumin 3.7 g/dl 11/30/171929 Prothrombin Time 16.2 seconds H 11/30/171929 Prothromb Time International Ratio 1.29 11/30/171929 Activated Partial Thromboplast Time 30 seconds 11/30/171929 Stool Occult Blood (IFOB) Negative 11/30/171914 Condition: Improved Discharge: Home, Self Care Time Spent: > 30 min Discharge Instructions Home Meds Reported Medications Alprazolam (ALPRAZOLAM) 1 Mg Tablet, 1 TAB PO QHS, #3 TAB 12/01/17 Ferrous Sulfate (FERROUS SULFATE) 325 Mg Tablet.dr, 325 MG PO BID 11/30/17 Ascorbic Acid (VITAMIN C) 500 Mg Tablet, 500 MG PO, TAB 11/30/17 Quetiapine Fumarate (SEROQUEL) 50 Mg Tablet, 50 MG PO HS 09/27/16 Spironolact/Hydrochlorothiazid (SPIRONOLACTONE-HCTZ 25-25 TAB) 1 Each Tablet, 1 EACH PO DAILY, TAB 09/27/16 Metformin Hcl (GLUCOPHAGE) 500 Mg Tablet, 1 TAB PO QDAY, TAB 09/27/16 Losartan Potassium (LOSARTAN POTASSIUM) 50 Mg Tablet, 50 MG PO QDAY 08/18/16 Atorvastatin Calcium (LIPITOR) 40 Mg Tablet, 1 TAB PO QHS, TAB 08/18/16 Hydrocodone Bit/Acetaminophen (NORCO 7.5-325 TABLET) 1 Each Tablet, 1 EACH PO Q4H Y for PAIN 08/18/16 Amlodipine Besylate (NORVASC) 10 Mg Tablet, 1 TAB PO QDAY, TAB 08/18/16 [Oxygen] No Conflict Check, 3-4 L INH CONTINUOUS 07/12/13 Levothyroxine Sodium (SYNTHROID) 150 Mcg Tablet, 150 MCG PO QDAY, 0 Refills 06/26/13 Discontinued Reported Medications Aspirin (ASPIRIN) 81 Mg Tab.chew, 81 MG PO QDAY, TAB.CHEW 12/01/17 Warfarin Sodium (WARFARIN SODIUM) 2.5 Mg Tablet, 2.5 MG PO Tues/Thurs 08/18/16 Docusate Sodium (COLACE) 100 Mg Capsule, 100 MG PO BID, 0 Refills 06/26/13 Warfarin Sodium (COUMADIN) 5 Mg Tablet, 5 MG PO Sun/Sun/Sun/Sat/Sun , #30 0 Refills 06/26/13 Alprazolam (XANAX) 0.5 Mg Tablet, 2 TAB PO PRN, TAB 11/15/17 Aspirin (ASPIRIN) 325 Mg Tablet, 325 MG PO QDAY, TAB 11/15/17 Cephalexin Monohydrate (CEPHALEXIN) 500 Mg Cap, 250 MG PO QDAY, CAP 11/15/17 Duloxetine Hcl (CYMBALTA) 60 Mg Capsule.dr, 60 MG PO QDAY, #5 CAP 08/18/16 Cyclosporine (RESTASIS) 1 Each Droperette, 1 EACH OP BID 08/18/16 Discontinued Scripts Methylprednisolone (METHYLPREDNISOLONE) 4 Mg Tab.ds.pk, 4 MG PO DIRECTED, #1 PACK 0 Refills Prov:MARIKA MOSCOSO MD 11/15/17 Follow up Referrals: Family Practice @ [facility] with Marely Martell Md General Surgery @ Surgery, General with Marely Teran Md Diet: Diabetic Activity: As Tolerated, No Exertion Special Instructions: Follow up with Dr. Teran as planned on Sunday12/07/17. Follow up with Dr. Martell in next 5-7 days or sooner if any problems. Continue home oxygen and BiPAP. Copies to: MARELY MARTELL MD; MARELY TERAN MD Venous Thromboembolism Antithrombotics Is Pt On Any Antithrombotics?: No (Holding Coumadin due to bleeding and anemia. ) Problem Qualifiers (1) Anemia: Anemia type: iron deficiency Iron deficiency anemia type: chronic blood loss Qualified Codes: D50.0 - Iron deficiency anemia secondary to blood loss ( chronic) ANNITA GOEL MD Dec 02, 2017 09:01
[2017-12-02] MEDS: LOSARTAN POTASSIUM 50 MG TAB PO SCH (09:11)
[2017-12-02] MEDS: LEVOTHYROXINE SOD 0.150 MG TAB PO SCH (09:11)
[2017-12-02] MEDS: ASCORBIC ACID 500 MG TAB PO SCH (09:11)
[2017-12-02] MEDS: metFORMIN HCL 500 MG TAB PO SCH (09:11)
[2017-12-02] MEDS: HYDROCHLOROTHIAZIDE 25 MG TAB PO SCH (09:11)
[2017-12-02] MEDS: SPIRONOLACTONE 25 MG TAB PO SCH (09:11)
[2017-12-02] MEDS: amLODIPine BESYL(*) 5 MG TAB PO SCH (09:11)
[2017-12-02] MEDS: DOCUSATE SODIUM 100 MG CAP PO SCH (09:11)
[2017-12-02] MEDS: FERROUS SULFATE 325 MG TAB PO SCH (09:11)
[2017-12-07] MEDS ORDERED: PANT40TA65 PO (16:33)
== END 2017-12-02 08:53 | disposition home or self-care (01) ==
LOC: ER 18:52 → MED 20:33 → INTOOBSV 20:33
PROVIDERS: ADMIT Internal Medicine; ATTEND Internal Medicine
DX: D50.0 Iron deficiency anemia secondary to blood loss (chronic) (principal); R06.09 Other forms of dyspnea; I27.82 Chronic pulmonary embolism; Z79.01 Long term (current) use of anticoagulants; I10 Essential (primary) hypertension; J45.909 Unspecified asthma, uncomplicated; E03.9 Hypothyroidism, unspecified; G47.33 Obstructive sleep apnea (adult) (pediatric); Z95.0 Presence of cardiac pacemaker; E11.9 Type 2 diabetes mellitus without complications
CPT/HCPCS: 36415; 36430; 82274; 85014; 85018; 85025; 85610; 85730; 86850; 86900; 86901; 86920; 99285; A9270; G0378; J7040; P9016; 82040; 82247; 82310; 82374; 82435; 82565; 82947; 84075; 84132; 84155; 84295; 84450; 84460; 84520

== ENCOUNTER → 2018-01-02 | Outpatient (CLI) | payer MEDICARE ==
[2017-12-01 10:56] VITALS: BMI 50.9
[~2018-01-02] MED LIST changes: +ASCO-182 PO; +ASPI81TA94 PO; +FERR-41 PO
[2018-01-02 16:38] LABS: PLATELET COUNT, AUTOMATED 211 K/uL (150-450)
== END ==
LOC: LAB 16:12
PROVIDERS: ATTEND Surgery
DX: E11.9 Type 2 diabetes mellitus without complications (principal); D64.9 Anemia, unspecified; R06.00 Dyspnea, unspecified
CPT/HCPCS: 36415; 82310; 82374; 82435; 82565; 82947; 84132; 84295; 84520; 85025

== ENCOUNTER → 2018-02-22 | Outpatient (CLI) | payer MEDICARE ==
[2017-12-01 10:56] VITALS: BMI 50.9
[~2018-02-22] MED LIST changes: +AMOX500T10 PO; +BARIUM SULFATE 148 GM POWDER ONE; +BARIUM SULFATE 240 ML ORAL SUS (NECTAR) ONE; +IPRA15SP7 NS
--- NOTE | 2018-02-22 15:47 | RADIOLOGY IMAGING REPORT ---
FACILITY: [facility] - [place] PATIENT NAME: Susi Linder : 1940 MR: [id number] V: [id number] EXAM DATE: ORDERING PHYSICIAN: OCTAVIANO GARCIA TECHNOLOGIST: Location: [facility] - [place] Patient: Susi Linder : 1940 Visit/Account:[id number] Date of Sevice: 02/22/2018 Videofluoroscopic modified barium swallow study Indication: Dysphagia Comparison: None available. Findings: Various solid and liquid barium coated substances were administered to the patient by the speech ther apist. There is no adriana aspiration. There is penetration with thin and nectar consistency. Significant nonspecific delay of a 13 mm barium tablet at the GE junction. Refer to speech pathology notes for full description. Dose area product: 692.87 uGym2 IMPRESSION: 1. No aspiration. 2. Penetration with thin and nectar consistency. 2. Significant delay of 13 mm barium tablet at the GE junction which is nonspecific however cannot e xclude stricture. Report Dictated By: Jaspreet Mata MD at 02/22/2018 3:39 PM Report E-Signed By: Jaspreet Mata MD at 02/22/2018 3:41 PM WSN:[email or web address]
--- NOTE | 2018-02-22 17:47 | SLP MODIFIED BARIUM SWALLOW ---
[*]Speech Language Pathology Modified Barium Swallow Evaluation Report Date of Evaluation: 02-22-18 Patient Name: Susi Linder Patient : 1940 Physician: Dr. Nick Montero and Dr. Nick Apple Clinician: Paty Johnson M.S., [facility], Nory Rodriguez B.A., GSC BACKGROUND The patient is a 77yr old female. The patient was referred for an MBS to assess swallow structure and function as indicated by s/s of pharyngeal dysphagia. Pt reported difficulty swallowing hard/crunchy foods and reported coughing during or after swallowing thin liquids. Pt reported feeling globus sensation inferior to larynx with food, as indicated by pointing. Pt reported taking medication for GERD. Oxygen Supplementation: Yes, none during study Level of Consciousness: Non altered Cognitive/Linguistic: WNL Orientation: x4 Language: -expressive: nonaphasic -receptive: nonaphasic Speech: -non-apraxic -non-dysarthric Voice -Dysphonia: none -Nasal emission: No -Hypernasality: No -Wet Vocal Quality: No Non-verbal Oral Structure and Function: WNL Pain with Swallow: Pt. reported feeling globus sensation inferior to larynx, as indicated by pointing. MODIFIED BARIUM SWALLOW In conjunction with radiology, lateral view with trials of the following consistencies: thin barium liquid (noncarbonated), barium marked pureed, mechanical soft, and regular food consistencies. A 1cm barium pill was trialed in the A/P view. ORAL STAGE Thin Liquids: WNL Pureed Foods: Trace amounts of lingual reside on base of tongue Mechanical Soft Foods: WNL Regular Foods: WNL. PHARYNGEAL STAGE Thin Liquid: Delayed swallow initiation to level of pyriform sinus. Score of 2 on Penetration/Aspiration scale: material enters the airway, remains above the vocal folds, and is ejected from the airway. Alcalde Liquid: Delayed swallow initiation to level of pyriform sinus. Score of 2 on Penetration/Aspiration scale: material enters the airway, remains above the vocal folds, and is ejected from the airway. Pureed Food: Delayed swallow initiation to level of valleculae. Score of 1 on Penetration/Aspiration Scale*: Material does not enter airway. Mechanical Soft Foods: no evidence of dysphagia WNL Score of 1 on Penetration/ Aspiration Scale*: Material does not enter airway. Regular Food Consistency: no evidence of dysphagia WNL. Score of 1 on Penetration/Aspiration Scale*: Material does not enter airway. *(Juliette et al. 1996) ESOPHAGEAL STAGE Peristaltic movement appears to be WNL Cervical Esophagus: Materials witnessed clearing from cervical esophagus with second swallow. Thoracic Esophagus: Materials witnessed clearing from upper/mid/lower thoracic esophagus WNL. ALIA: Non witnessed. Laryngopharyngeal Reflux (LPR) None witnessed BARIUM PILL: 1cm barium pill taken with thin liquids. Witnessed difficulty clearing liquid stasis from the distal 1/3 of esophagus, narrowing observed. Difficulty clearing pill from esophagus to stomach. SUMMARY Aspiration Risk: Mild. Delayed swallow initiation with penetration may increase aspiration risk. However, airway was observed to be protected during all trials. 1.Dysphagia Severity Rating Scale Level-1 (Gramigna, 2006; Daele et. al., 1990) Minimal dysphagiavideo swallow shows slight deviance from a normal swallow. Patient may report a change in sensation during swallow. No change in diet is required. 2.No modification in consistency of diet is indicated. RECOMMENDATIONS 1. Further Evaluation: Esophagram to further assess for possible esophageal dysphagia 2. Speech Therapy: Not recommended at this time. Thank you for this referral. Please call [phone] to contact the [facility]. Paty Johnson M.S., [facility] Nory Rodriguez B.A., GSC Physician Signature Date [facility]
== END ==
LOC: RAD 01:22
PROVIDERS: ATTEND Otolaryngology
DX: R13.10 Dysphagia, unspecified (principal)
CPT/HCPCS: 74230

== ENCOUNTER → 2018-07-23 | Outpatient (REF) | payer MEDICARE ==
[2017-12-01 10:56] VITALS: BMI 50.9
[~2018-07-23] MED LIST changes: -BARIUM SULFATE 148 GM POWDER ONE; -BARIUM SULFATE 240 ML ORAL SUS (NECTAR) ONE; -HYDR-4308 PO; +HYDR-654 PO; -LOSA50TA72 PO; +LOSA50TA74 PO
[2018-07-23 12:04] LABS: INR 2.45
== END ==
LOC: ZZSENDIN 11:45
PROVIDERS: ATTEND Family Medicine
DX: Z51.81 Encounter for therapeutic drug level monitoring (principal); Z79.01 Long term (current) use of anticoagulants
CPT/HCPCS: 85610

== ENCOUNTER → 2018-09-11 | Outpatient (CLI) | payer MEDICARE ==
[2017-12-01 10:56] VITALS: BMI 50.9
[~2018-09-11] MED LIST changes: -LOSA50TA74 PO; +LOSA50TA80 PO
--- NOTE | 2018-09-11 14:00 | RADIOLOGY IMAGING REPORT ---
[place] [facility] [place] NAME: Susi Linder : 1940 MR: [id number] V: [id number] EXAM DATE: ORDERING PHYSICIAN: ROSLYN NEVAREZ TECHNOLOGIST: Location: [facility] Patient: Susi Linder : 1940 Visit/Account:[id number] Date of Sevice: 09/11/2018 EXAMINATION: Carotid ultrasound with duplex Doppler evaluation HISTORY: Carotid stenosis, no interval history per report. COMPARISON: July 10, 2017 ultrasound, CT angiogram October 24, 2016 TECHNIQUE: Real-time grayscale, color flow and Doppler sonography of the cervical carotid and vertebr al arteries is performed. Stenosis % is determined from velocity criteria extrapolated from diameter data as defined by the Soc iety of Radiologists in Ultrasound Consensus Conference Radiology 2003; 229;340-346. FINDINGS: Plaque: Right greater than left carotid bulb and proximal internal carotid artery plaque. Vertebral arteries: Antegrade flow in both vertebral arteries. Peak systolic velocities are listed below in centimeters/second: Right: CCA proximal: 100 CCA mid: 83 CCA distal: 64 Bulb: 107 ICA proximal: 86 ICA mid: 79 ICA distal: 59 ECA: 113 ICA/CCA ratio: One Left: CCA proximal: 92 CCA mid: 69 CCA distal: 75 Bulb: 93 ICA proximal: 89 ICA mid: 102 ICA distal: 107 ECA: 129 ICA/CCA ratio: 1.5 IMPRESSION: 1. The previously demonstrated elevated flow velocity within the proximal left internal carotid justin ry has either decreased compared to prior or more likely is less well visualized on current exam. Ba sed on prior CT angiogram there is greater than 70% short segment proximal left cervical internal car otid artery stenosis which is not well characterized on this exam. Flow velocity elevation in the left proximal internal carotid artery measures in the less than 50% r radha on current exam which is likely an underestimate. CT angiogram may be warranted for more accurate characterization of the underlying stenosis in the le ft proximal internal caroitd artery. 2. Otherwise no significant carotid artery flow velocity elevation seen on either side based on ultr asound to suggest a signficant stenosis. Report Dictated By: Jaspreet Nieves MD at 09/11/2018 1:40 PM Report E-Signed By: Jaspreet Nieves MD at 09/11/2018 1:57 PM WSN:[id number]
== END ==
LOC: US 09-04 01:09
PROVIDERS: ATTEND Internal Medicine Cardiovascular Disease
DX: I65.23 Occlusion and stenosis of bilateral carotid arteries (principal); G45.1 Carotid artery syndrome (hemispheric)
CPT/HCPCS: 93880

== ENCOUNTER → 2018-10-22 | Outpatient (CLI) | payer MEDICARE ==
[2017-12-01 10:56] VITALS: BMI 50.9
[~2018-10-22] MED LIST changes: +THIA50TA PO; -THIA50TA10 PO
[2018-10-22 12:53] LABS: LDL CHOLESTEROL 70 mg/dl
== END ==
LOC: LAB 11:45
PROVIDERS: ATTEND Family Medicine
DX: E11.42 Type 2 diabetes mellitus with diabetic polyneuropathy (principal)
CPT/HCPCS: 36415; 82040; 82247; 82310; 82374; 82435; 82465; 82565; 82947; 83036; 83718; 84075; 84132; 84155; 84295; 84443; 84450; 84460; 84478; 84520; 85027

== ENCOUNTER 2018-11-12 10:30 | Outpatient (RCR) | payer MEDICARE ==
[2017-12-01 10:56] VITALS: BMI 50.9
--- NOTE | 2018-08-21 11:54 | PT INITIAL EVALUATION ---
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 She fell in May at home sustaining a R femoral hairline fracture. 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 Josefa exercises in our clinic on our independent pay program, doing the Nu-step. Pain location is L knee and described as ache, burning in tendons. Pain scale is 7 on a ten point pain scale. Pain is worse with trying to sleep at night, ambulation, transfers and better with nothing reduces the pain. REHAB PROBLEM LIST: Increased Pain Decreased ROM Decreased Strength Decreased Endurance Decreased Balance Decreased Mobility Decreased Gait PREVIOUS MEDICAL HISTORY: R TKA, L knee bone on bone, Coumadin for DVT's, morbid obesity, 24/7 O2, pacemaker. OCCUPATION: Retired. Lives alone, home help. OBJECTIVE: Posture: L ~ 30 deg. vagus knee, R knee grossly 15 deg. valgus, heels 12" apart. ROM: L knee A/PROM 10/10 - 125/125 degrees. R knee extension AROM 0 degrees. Ankle DF in rearfoot neutral -10 deg. B. Strength: L quad 4-/5, crepitus with resistance, R 5-/5, hamstrings L 4+/5, R 4- /5. Ankle DF B 4+/5. Palpation: Painful along the L knee joint line, popliteal fossa. Mobility: No sit/stand 21" height, able to transfer sit to stand from 25" height with UE use, one attempt, steady immediate standing balance. Gait: Independent ambulation with ER B LE 40 degrees, shorter R stance, R foot flat pattern, B trunk lean over ipsilateral hip due to hip weakness, feet not passing each other but do clear the floor. Balance: Tinetti Gait and Balance 18, a high fall risk. Increased postural sway with static stand eyes closed. Turns with steady steps, increased trunk shift, <4 seconds. ASSESSMENT: Josefa Linder presents with L knee OA, weakness affecting fall risk, mobility, gait. She did well with knee unloaded strengthening today. Short Term Goals 4 weeks: Josefa ambulates with feet passing each other, rates L knee pain 4/10 with ambulation. 8 weeks: Josefa is a low fall risk (Tinetti), rates L knee pain 2-3/10 with ambulation. Patient's Goals Improve strength for transfers, gait, and reduce L knee pain. PLAN: Patient to be seen for Manual Therapy, Ice/Heat, Range of Motion, Stretching, Neuromuscular Re-ed, Electrical Stim, Gait Trg/Balance Trg, Home Exercise Program 2x/Week for 2 Months Thank you for this referral. If you have any questions, comments, or concerns about this report or plan, please contact me at . [facility]
--- NOTE | 2018-10-01 11:56 | PT PLAN OF CARE ---
Physician: Dr. 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 8 weeks: Josefa is a low fall risk (Tinetti) (met), rates L knee pain 2-3/10 with ambulation (met). PATIENT'S GOAL: Improve strength for transfers (not met), gait (met), and reduce L knee pain (progressing). Patient Compliance: Excellent Prognosis: Good Reasons for continuing therapy: S: Josefa relates her L knee pain with ambulation is 2-3/10, but 7/10 with transfers in/out of cars, low chairs. She tripped on a chair leg this weekend and her L knee pain has increased again to 7/10 at the joint. O: ROM: L knee A/PROM now 0/0 extension. Strength: L quad improved to 4/5, crepitus with resistance. Palpation: Painful along the L knee joint line, IT band Gait/Balance: Josefa now walks with feet clearing the floor but not passing each other, even cadance and WS, less trunk lean. Tinetti Gait and Balance improved from 18 to 23, a fall risk for community ambulation. Mobility: Sit/stand 19" height with one hand, 21" height independently. A/P: Susi "Josefa" Kailash is improving LE strength, gait, balance but can benefit from continued PT to improve quad strength for low chair/car transfers and improve stride length. If you agree, we'll continue 2x/week, another 3 weeks. Thank you. ROXY
--- NOTE | 2018-10-15 13:00 | PT PLAN OF CARE ---
Physician: Dr. 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 8 weeks: Josefa is a low fall risk (Tinetti) (not met), rates L knee pain 2-3/10 with ambulation (not met). PATIENT'S GOAL: Improve strength for transfers (not met), gait (met), and reduce L knee pain (progressing). Patient Compliance: Excellent Prognosis: Good Reasons for continuing therapy: S: Josefa relates she's had L spinning vertigo for a week, upon awakening. She's complaining more of L IT band tendinitis over the last 6 weeks, burning, ache, 7/10 constant pain and disrupts sleep. Knee FOTO 44%. O: Special Tests: Positive Hallpike for torsional upbeating nystagmus, L posterior canal. VOR x1 reproduces out-of-sync feeling and corrective saccades. Gait with head motion with weaving, LOB. Gait/Balance: Tinetti Gait and Balance reduced from 23 to 20 due to discordant steps when turning, unsteady static stand eyes shut and L foot not clearing the floor. Josefa ambulates with upright trunk now. Palpation: Painful L IT band, scar tissue within the tendon. Stretching the L ITB reduces pain. ROM: L knee extension remains 0/0. Strength: L quad still 4/5. A/P: Susi Linder (Sue) has developed L BPPV which is increasing fall risk, reducing balance and she has IT band tendinitis. If you agree, we'll incorporate vestibular treatment in her knee gait training and work the IT band with her knee treatment, 2x/week, 6 weeks. Thank you. ROXY
== END 2018-11-18 ==
LOC: PT 10:30
PROVIDERS: ATTEND Family Medicine
DX: M17.12 Unilateral primary osteoarthritis, left knee (principal); Z79.01 Long term (current) use of anticoagulants
CPT/HCPCS: 97010; 97110; 97112; 97116; 97140; 97162; G0283

== ENCOUNTER 2018-12-05 10:30 | Outpatient (RCR) | payer MEDICARE ==
[2017-12-01 10:56] VITALS: BMI 50.9
--- NOTE | 2018-11-26 11:35 | PT PLAN OF CARE ---
Physician: Dr. 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 8 weeks: Josefa is a low fall risk (Tinetti) (met), rates L knee pain 2-3/10 with ambulation (met). PATIENT'S GOAL: Improve strength for transfers (progressing), gait (met), and reduce L knee pain (progressing). Patient Compliance: Excellent Prognosis: Good This is our business office's 3 month POC Reasons for continuing therapy: S: Josefa reports her L knee is better, 2-3/10 during the day but L IT band tendinitis symptoms 7-8/10 at night. Her BPPV resolved with Radha's maneuver. She won't have a consistent ride n December and will try to get here for independent exercise program if she can. O: ROM: L knee A/PROM 0/0 - 125/125 degrees. Ankle DF in rearfoot neutral 0 deg. B. Strength: L quad 4/5 still. Palpation: Painful along the L IT band, L knee joint line. Stretching still reduces L IT band pain. Gait/Balance: Tinetti Gait and Balance improved to 21/26, a 25% impairment. Josefa now ambulates with O2 tank with feet passing each other and clearing the floor. Double limb support only due to knee pain. Josefa now turns with control, steady. Mobility: Sit/stand 23" height in one attempt without UE use, 21" with UE use. A/P: Susi "Josefa" Kailash is improving gait, balance and still needs to strengthen. If you agree, we'll continue through November 2x/week, then DC to HEP. Thank you. ROXY
== END 2018-12-05 18:00 | disposition home or self-care (01) ==
LOC: PT 10:30
PROVIDERS: ATTEND Family Medicine
DX: M17.12 Unilateral primary osteoarthritis, left knee (principal); Z79.01 Long term (current) use of anticoagulants